=== PATIENT | male | born 1985 | race Two or more races ===

== ENCOUNTER 2023-08-25 07:35 | Emergency (ER) | payer MEDICAID, OTHER, SELFPAY ==
--- NOTE | ~2023-08-25 | CT_ITS ---
EXAMINATION: CT ABDOMEN AND PELVIS WITH CONTRAST CLINICAL INFORMATION: Rectal pressure, burning and suprapubic pain COMPARISON: None available. TECHNIQUE: Multidetector volumetric images were obtained from the superior aspect of the liver through the pubic symphysis following administration 85 mL of Omnipaque 350 intravenous contrast. Sagittal and coronal reformatted images were obtained on the technologist's workstation. Oral contrast: No This CT examination was performed using dose optimization techniques as appropriate, variously including the following: *Automated exposure control *Adjustment of mA and/or kV according to patient size (this includes techniques or standardized protocols for targeted exams where dose is matched to indication/reason for exam; i.e. extremities or head) *Use of iterative reconstruction technique DLP: 374 mGy-cm FINDINGS: LUNG BASES: A 4 mm calcified granuloma is present in the posterior right costophrenic sulcus. A noncalcified 4 mm subpleural left lower lobe nodule is present (4:17). The visualized lung bases are otherwise unremarkable. LIVER, GALLBLADDER, AND BILIARY TREE: The liver is normal in size, shape, and attenuation. There is a 5 mm benign hepatic cysts present in the right lobe of the liver but no suspicious solid focal hepatic lesion or biliary ductal dilatation is present. The gallbladder is unremarkable with no evidence of radiopaque gallstones, gallbladder wall thickening, or obvious pericholecystic inflammatory changes. PANCREAS: Unremarkable. SPLEEN: Unremarkable. ADRENAL GLANDS: Unremarkable. KIDNEYS AND URETERS: The kidneys are normal in size, shape, and attenuation. There is duplication of the collecting system present bilaterally with 2 ureters seen it least to the level of the mid pelvis. It is difficult to see the ureter is compressed to the but no obstruction or ureteral calculi are seen. No hydronephrosis, hydroureter, or nephrolithiasis seen. No perinephric stranding. BLADDER: Bladder is slightly thick walled. GASTROINTESTINAL TRACT: The small and large bowel are unremarkable aside from a few scattered colonic diverticula without diverticulitis. The appendix is unremarkable. ABDOMINAL WALL: No significant hernia is appreciated. LYMPH NODES: Normal. VASCULAR: Unremarkable. PELVIC VISCERA: Mildly prominent prostate. Seminal vesicles appear normal. OSSEOUS STRUCTURES: Unremarkable. CT/CT abdomen pelvis w IV con IMPRESSION: 1. A cause for the patient's rectal pressure, burning and suprapubic pain has not been found. 2. Calcified granuloma right lung base. 3. 4 mm noncalcified left lower lobe nodule. No follow-up recommended. 4. Duplicated collecting system bilaterally. 5. Mildly thick-walled bladder with mildly prominent prostate. 6. Colonic diverticulosis without diverticulitis. Fleischner guidelines were followed.
[2023-08-25 07:39] VITALS: BP 136/89; PULSE 68; RESP 18; TEMP 36.4; O2SAT 99; BMI 23.3
[2023-08-25 08:00] LABS: MANUAL DIFF FLAG NO
[2023-08-25 08:03] LABS: Appearance Urine Clear; Color Urine Yellow; Glucose Urine UA Negative (Negative); Leukocyte Esterase Urine Negative (Negative); Nitrite Urine Negative (Negative); PH 5.5 (5.0-9.0); Specific Gravity - Urine <= 1.005 (1.005-1.025); Urine Blood Negative (Negative); Urine Ketones Negative (Negative); Urine Protein Negative (Neg-Trace)
--- NOTE | 2023-08-25 08:03 | PC.NURSE ---
enzo arrives ambulatory through external triage with a steady gait, patient is complaining of abdominal pain for the last 3 days or so, patient primarily chilean speaking, denies vomiting, however endorses a few episodes of nausea and denies diarrhea. patient able to provide urine sample at this time, abdomen soft non tender, BS present, blood work obtained at this time. provider at bedside with provider at this time
[2023-08-25 08:09] LABS: Basophils Percent Auto 0.5 % (0-2); Eosinophils Absolute Auto 0.3 X10*3/uL (0.0-0.4); Eosinophils Percent Auto 5.1 % (0-4); Hematocrit 43.2 % (42.0-52.0); Hemoglobin 14.3 g/dl (14.0-18.0); Imm Gran Abs Auto 0.01 X10*3/uL (0.00-0.03); Imm Gran Pct Auto 0.2 % (0.0-0.4); Lymphocytes Absolute Auto 2.8 X10*3/uL (1.2-4.9); Lymphocytes Percent Auto 42.3 % (20-40); Mean Corpuscular HGB Conc 33.1 g/dl (31.0-36.0); Mean Corpuscular Hemoglobin 28.6 pg (27.0-33.0); Mean Corpuscular Volume 86.4 fL (80.0-98.0); Mean Platelet Volume 9.9 fL (9.4-12.4); Monocytes Absolute Auto 0.4 X10*3/uL (0.1-1.2); Monocytes Percent Auto 6.7 % (2-11); Neutrophils Percent Auto 45.2 % (45-73); Platelet Count 250 X10*3/uL (160-400); Red Cell Distribution Width 12.6 % (11.0-16.0); White Blood Count 6.5 X10*3/uL (4.8-10.8)
[2023-08-25 08:21] LABS: Alanine Aminotransferase 21 U/L (0-40); Albumin Level 4.7 g/dL (3.5-5.0); Alkaline Phosphatase 88 U/L (39-117); Anion Gap 13 (12-20); Aspartate Amino Transferase 23 U/L (5-37); Bilirubin Direct 0.2 mg/dL (0.0-0.5); Bilirubin Total 0.5 mg/dL (0.0-1.0); Blood Urea Nitrogen 9 mg/dL (9-16); Calcium 9.7 mg/dL (8.4-10.2); Carbon Dioxide 24 mmol/L (22-29); Chloride 107 mmol/L (96-108); Creatinine Clr Calc Pharmacy 96.8; Estimated Glomerular Filt Rate > 60; Glucose Random 92 mg/dL (60-115); Lipase 23 U/L (8-78); Potassium 3.7 mmol/L (3.3-5.1); Sodium 140 mmol/L (135-145); Total Protein 8.3 g/dL (6.5-8.0)
--- NOTE | 2023-08-25 08:21 | ED.ABDPAIN ---
HPI - Abdominal Pain General Chief Complaint: Abdominal Pain Stated Complaint: Abd pain Time Seen by Provider: 08/25/23 07:46 Source: patient and RN notes reviewed Mode of arrival: ambulatory Limitations: no limitations History of Present Illness ED Provider: Pauly Herrera PA-C HPI narrative: This is a 38-year-old [place]-speaking male, with no known medical problems, who presents to the emergency department with complaints of intermittent lower abdominal pain x 10 days. Patient states that he 1st initially noticed this pain with bowel movements however states that now the stomach pain occurs at random. He also endorses a burning and warmth sensation around his rectum. He denies any fevers, chills, nausea, vomiting or diarrhea. He does endorse hard stool, with constipation. He has a history of constipation, last bowel movement was this morning. Denies any bloody or black stool. No other complaints or concerns at this time. MD elicited complaint: abdominal pain Pertinent past history: constipation Onset (ago): day(s) Pain Consistency: intermittent Location: diffuse Severity: moderate Quality: burning Radiation: none Migration to: no migration Exacerbating factors: bowel movement Relieving factors: nothing Associated symptoms: denies other symptoms Related Data Previous Rx's ?Medication ?Instructions ?Recorded docusate calcium 240 mg capsule 240 mg PO DAILY #30 caps 08/25/23 hydrocortisone 2.5 % topical cream 1 appl PA BEDTIME PRN hemorrhoids 08/25/23 with perineal applicator #30 grams (Anusol-HC) polyethylene glycol 3350 17 gram 17 g PO DAILY #30 ea 08/25/23 oral powder packet (Miralax) Allergies Allergy/AdvReac Type Severity Reaction Status Date / Time No Known Allergies Allergy Verified 08/25/23 07:43 Review of Systems Review of Systems Yes all other systems are reviewed and are negative Constitutional: Reports as per HPI [facility] Social History Social History Smoked in Last 30 Days: No Use of substances other than those prescribed or required for medical reasons: No Advance Directives: No Advance Directives Information Provided: Yes Do you have a plan to hurt others: No Plan Physical Exam ED Vital Signs: Vital Signs - 24 hr 08/25/23 07:39 08/25/23 12:27 Temperature 97.6 F 98.5 F Pulse Rate 68 57 Respiratory Rate 18 12 Blood Pressure 136/89 122/90 H Pulse Oximetry 99 98 Oxygen Delivery Method Room Air Room Air BMI result Body Mass Index 23.3 Const General: cooperative, comfortable and no acute distress Orientation/consciousness: patient oriented x3 Limitations: no limitations HENMT Head: Yes normal to inspection, Yes normocephalic and Yes atraumatic Ears: hearing grossly normal bilaterally General nose exam: Normal external nose present Face and sinus: Yes normal facial exam Mouth: Normal oral and palatal mucosa present, oropharynx normal and moist mucous membranes Throat: Yes posterior oropharynx normal Eyes General: appearance normal, both eyes and all related structures Eyelids: Yes eyelids normal Conjunctivae: conjunctivae normal Sclerae: sclerae normal Pupils: Equal, round and reactive pupils present EOM: EOMs intact bilaterally Neck Neck: Yes normal visual inspection, Yes full ROM and Yes no lymphadenopathy Lymphatic: no lymphadenopathy noted Chest Chest palpation & inspection: normal inspection of the chest Resp Effort & Inspection: normal respiratory effort and able to speak in complete sentences Auscultation: clear to auscultation bilaterally, no crackles, no rales, no rhonchi and no wheezes Cardio Rate: regular rate Rhythm: regular rhythm Heart sounds: S1 normal heart sound present and S2 normal heart sound present GI Other: Abdomen is soft, with no tenderness palpation, no rebound or guarding, normoactive bowel sounds present in all 4 quadrants. Rectal examination performed with HAYES Mae present. Patient has 1 external hemorrhoid noted to the 12 o'clock position, non indurated, nontender Inspection: Yes normal to inspection Skin General skin exam: no rashes or lesions noted Trauma: no lacerations or abrasions Wounds: no wounds Neuro General: patient oriented x3 and moves all extremities Cranial nerves: Yes Equal, round and reactive pupils present Extrem General: Yes normal to inspection Right upper extremity: normal to inspection Left upper extremity: normal to inspection Right lower extremity: normal to inspection Left lower extremity: normal to inspection Course Reevaluation(s) Reevaluation #1: CT scan returns, revealing calcified granuloma in the right lower base, left lower lobe nodule, with no follow-up recommended. He also has a duplicated collecting system bilaterally with mildly thick-walled bladder with mildly prominent prostate. He does have diverticulosis without diverticulitis. I discussed workup today with patient. Stressed the importance of finding a primary care physician. He was given the [facility] for follow-up. It is unclear what is causing him to have the symptoms however will discharge him on constipation regimen, and anusol to help. Discussed strict return precautions. He is eating and drinking without difficulty. Abdomen is soft and nontender. Labs and vital signs within normal limits. Patient stable for discharge. Medical Decision Making Medical Decision Making [facility] Narrative: This is a 38-year-old [place]-speaking male who presents emergency department with complaints of abdominal pain, burning in rectum x 10 days. On arrival, patient nontoxic appearing, abdomen is soft and nontender. He appears comfortable under no acute distress. Differential diagnoses include gastritis, gastroenteritis, diverticulitis, diverticulosis, rectal abscess, fissure, fistula, dyspepsia. Plan: Labs, CT abdomen with IV contrast. Differential Diagnosis Differential Diagnoses: The differential diagnosis associated with the presentation includes See above Admission/Observation Consideration of admission/observation: Escalation of care including admission/observation considered Lab Data [facility] Lab Attestation statement: I reviewed the patient's lab results. 08/25/23 07:55 08/25/23 07:55 Labs: Lab Results 08/25/23 08/25/23 08/25/23 Range/Units 07:55 07:58 08:35 WBC 6.5 (4.8-10.8) X10*3/uL RBC 5.00 (4.60-5.80) X10*6/uL Hgb 14.3 (14.0-18.0) g/dl Hct 43.2 (42.0-52.0) % MCV 86.4 (80.0-98.0) fL MCH 28.6 (27.0-33.0) pg MCHC 33.1 (31.0-36.0) g/dl RDW 12.6 (11.0-16.0) % Plt Count 250 (160-400) X10*3/uL MPV 9.9 (9.4-12.4) fL Immature Gran % (Auto) 0.2 (0.0-0.4) % Neut % (Auto) 45.2 (45-73) % Lymph % (Auto) 42.3 H (20-40) % [place] % (Auto) 6.7 (2-11) % Eos % (Auto) 5.1 H (0-4) % Baso % (Auto) 0.5 (0-2) % Lymph # (Auto) 2.8 (1.2-4.9) X10*3/uL [place] # (Auto) 0.4 (0.1-1.2) X10*3/uL Eos # (Auto) 0.3 (0.0-0.4) X10*3/uL Baso # (Auto) 0.0 (0.0-0.2) X10*3/uL Abs Immat Gran (auto) 0.01 (0.00-0.03) X10*3/uL Absolute Neuts (auto) 3.0 (2.0-8.3) x10*3/uL Absolute Nucleated RBC 0.000 (0.0-0.012) X10*3/uL Nucleated RBC % (auto) 0.0 (0.0-0.2) /100WBC Sodium 140 (135-145) mmol/L Potassium 3.7 (3.3-5.1) mmol/L Chloride 107 (96-108) mmol/L Carbon Dioxide 24 (22-29) mmol/L Anion Gap 13 (12-20) BUN 9 (9-16) mg/dL Creatinine 0.90 (0.5-1.4) mg/dL Estim Creat Clear Calc 96.8 Estimated GFR > 60 Random Glucose 92 (60-115) mg/dL Calcium 9.7 (8.4-10.2) mg/dL Total Bilirubin 0.5 (0.0-1.0) mg/dL Direct Bilirubin 0.2 (0.0-0.5) mg/dL AST 23 (5-37) U/L ALT 21 (0-40) U/L Alkaline Phosphatase 88 (39-117) U/L Total Protein 8.3 H (6.5-8.0) g/dL Albumin 4.7 (3.5-5.0) g/dL Lipase 23 (8-78) U/L Urine Color Yellow Urine Appearance Clear Urine pH 5.5 (5.0-9.0) Ur Specific [place] <= 1.005 (1.005-1.025) Urine Protein Negative (Neg-Trace) mg/dL Urine Glucose (UA) Negative (Negative) mg/dL Urine Ketones Negative (Negative) mg/dL Urine Blood Negative (Negative) Urine Nitrite Negative (Negative) Ur Leukocyte Esterase Negative (Negative) Stool Occult Blood NEGATIVE (NEGATIVE) Radiology Impression Discussion of test interpretation with radiology: I have reviewed the radiologist's reading. External Record Review External record reviewed: Inpatient record, Office record, Outpatient record, Prior outpatient labs, Prior outpatient radiology, Primary care record and Outside ED record Medications Administered Discontinued Medications Generic Name Dose Route Start Last Admin Trade Name Freq PRN Reason Stop Dose Admin Iohexol 100 ml 08/25/23 09:47 08/25/23 09:47 Iohexol 350 Mg/Ml 100 Ml Infus..Btl IV 08/25/23 09:48 85 ml ONCE ONE Administration Discharge Plan Discharge Clinical Impression: Constipation, Acute hemorrhoid Patient Disposition: Home, Self-Care Instructions: Constipation (ED), Hemorrhoids (ED) Additional Instructions: You were seen in the emergency department due to lower abdominal pain and constipation. Please drink plenty of fluids get plenty of rest. Stick to a bland diet, avoid spicy or fried foods. Take prescribed medication as directed. Docusate his medication that can soften your stool, MiraLax will help produce a bowel movement. You may also use Anusol, this will help with rectal burning and pressure. You need to follow-up with your primary care physician regarding this visit. Alternate to make an appointment. There were some incidental findings on your CT scan there has a calcified granuloma at your right lung base as well as a 4 mm noncalcified left lower lobe nodule. You also have 2 ureters seen, as well as a prominent prostate. You also have evidence of diverticulosis. All these findings are non Urgent however important to mention to your primary care physician. They should request the records from [facility] for follow-up. If any new or worsening symptoms occur including but not limited to fevers, chills, chest pain, severe abdominal pain, please return for re-evaluation. Prescriptions: New polyethylene glycol 3350 [Miralax] 17 gram powder in packet 17 g PO DAILY Qty: 30 0RF docusate calcium 240 mg capsule 240 mg PO DAILY Qty: 30 0RF hydrocortisone [Anusol-HC] 2.5 % cream with perineal applicator 1 appl PA BEDTIME PRN (Reason: hemorrhoids) Qty: 30 0RF Referrals: [facility] [Physician] - Interventions: ED Discharge Assessment Last Done: 08/25/23 12:27 Discharge Date/Time: 08/25/23 12:37 Print Language: [place]
[2023-08-25 08:46] LABS: OBS Int Ctl Valid YES; OBS1 NEGATIVE (NEGATIVE)
[2023-08-25] MEDS: iohexoL 350 MG/ML 100 ML INFUS..BTL IV (09:47)
--- NOTE | 2023-08-25 11:44 | PC.NURSE ---
patient ambulatory with steady gait to bathroom, patient voided without difficulty, bladder scanned by remote sensing technician, PVR noted to be 2mL. provider made aware
[2023-08-25 12:27] VITALS: BP 122/90; PULSE 57; RESP 12; TEMP 36.9; O2SAT 98
== END 2023-08-25 12:37 | disposition home or self-care (01) ==
PROVIDERS: Physician Assistant Medical; Emergency Provider Emergency Medicine
DX: K59.00 Constipation, unspecified (principal); K64.9 Unspecified hemorrhoids; R30.0 Dysuria; Z79.899 Other long term (current) drug therapy
CPT/HCPCS: 36415; 51798; 74177; 80053; 81003; 82248; 82272; 83690; 85025; 99284; Q9967